=== PATIENT | female | born 1945 | race Caucasian/White ===

== ENCOUNTER → 2022-06-14 15:31 | Outpatient (CLI) | payer MEDICARE, SELFPAY ==
--- NOTE | 2022-06-14 15:33 | DI.MRI.S_ITS ---
PROCEDURE: MR LUMBAR SPINE WO CON INDICATIONS: Radiculopathy, lumbar region TECHNIQUE: Noncontrast sagittal T1 spin echo and T2 fast echo, sagittal STIR, and T2 fast spin echo through the lumbar spine. In cases with scoliosis, additional coronal T2 fast spin echo may be performed. COMPARISON: None. FINDINGS: Mild lumbar levoscoliosis centered at L2-L3. Approximately 5 mm anterolisthesis of L5 on S1. Otherwise normal alignment. Vertebral body heights maintained. No suspicious focal marrow signal abnormality or bone marrow edema. Normal position and appearance of the conus. Regional soft tissues normal. T12-L1: No spinal canal or neural foraminal stenosis. L1-L2: Posterior disc-osteophyte complex flattens and indents the ventral thecal sac. Mild displacement of the descending right L2 nerve roots in the right subarticular zone. Foraminal components of the disc bulge and facet hypertrophy combine to produce moderate right and mild left neural foraminal narrowing. L2-L3: Disc bulge flattens the ventral thecal sac without mass effect upon the traversing L3 nerve roots. Foraminal components of the disc bulge and facet hypertrophy combine to produce mild bilateral neural foraminal narrowing. L3-L4: Disc bulge flattens the ventral thecal sac. No mass effect upon the traversing L4 nerve roots. Foraminal components of the disc bulge and facet hypertrophy combine to produce moderate bilateral neural foraminal narrowing. L4-L5: Disc bulge flattens the ventral thecal sac with mild displacement of the descending L5 nerve roots in both subarticular zones. Severe left and moderate right neural foraminal narrowing due to foraminal components of the disc bulge and facet hypertrophy. L5-S1: Diffuse disc bulge and a superimposed broad-based posterior disc protrusion flatten the ventral thecal sac and displaces the bilateral descending S1 nerve roots in both subarticular zones. Foraminal components of the disc bulge and facet hypertrophy combine to produce severe left and moderate right neural foraminal narrowing. IMPRESSION: Multilevel multifactorial degenerative changes, worst at L4-L5 and L5-S1 where there is severe neural foraminal narrowing. Dictated by: Nico Torrez M.D. on 06/15/2022 at 8:27 Approved by: Nico Torrez M.D. on 06/15/2022 at 8:31
== END ==
PROVIDERS: Referring Provider Family Medicine; Visit Provider Family Medicine
DX: M47.26 Other spondylosis with radiculopathy, lumbar region (principal); M47.27 Other spondylosis with radiculopathy, lumbosacral region; M48.061 Spinal stenosis, lumbar region without neurogenic claudication; M48.07 Spinal stenosis, lumbosacral region
CPT/HCPCS: 72148

== ENCOUNTER → 2023-12-26 07:16 | Outpatient (CLI) | payer MEDICARE, SELFPAY ==
--- NOTE | 2023-12-26 07:19 | DI.MRI.S_ITS ---
PROCEDURE: MR HEAD/BRAIN WO/W CON INDICATIONS: APHASIA TECHNIQUE: Noncontrast axial T1 spin echo, axial T2 fast spin echo, sagittal and axial FLAIR, coronal T2 fast spin echo, axial gradient echo, axial diffusion and ADC through the brain. After the administration of contrast, axial and coronal and sagittal T1 spin echo with fat saturation through the brain. COMPARISON: [facility], , CAROTID DOPPLER BI, 12/26/2023, 11:02. FINDINGS: Image quality: This examination is limited by involuntary motion artifact. CSF spaces: Basal cisterns are patent. No extra-axial fluid collections. Ventricles are normal in size and shape. Brain: No midline shift. No intracranial bleeds or masses. No abnormal intracranial enhancement. There is cerebral volume loss for age. There is periventricular white matter chronic small vessel ischemic change. The brainstem appears normal. Diffusion-weighted images demonstrate no acute infarct. No chronic ischemic insults. Normal intravascular flow voids are present. Skull and face: Calvarial marrow is normal in signal. Orbits appear normal. Note is made of bilateral lens replacements. Sinuses: Sinuses and mastoids appear clear. IMPRESSION: No findings of acute or subacute infarction can be seen. No prior territorial infarct can be seen. No masses or abnormal enhancement can be seen. Dictated by: Miguel aDvis M.D. on 12/26/2023 at 16:35 Approved by: Miguel Davis M.D. on 12/26/2023 at 16:36
--- NOTE | 2023-12-26 07:19 | DI.US.S_ITS ---
PROCEDURE: US CAROTID DOPPLER BI INDICATIONS: APHASIA TECHNIQUE: Color and pulse Doppler interrogation was performed of both carotid systems, with image documentation and velocity measurements. COMPARISON: None. FINDINGS: Stenosis calculations are based on SRU (Society of Radiologists in Ultrasound) criteria. Right side: Brachial blood pressure: 125/55 mm Hg. Common carotid artery peak systolic velocity: 61 cm/sec. Internal carotid artery peak systolic velocity: 87 cm/sec. Internal carotid artery end diastolic velocity: 31 cm/sec. External carotid artery peak systolic velocity: 33 cm/sec. ICA/CCA peak systolic ratio: 1.4 . Soriano scale imaging description: Mild atherosclerotic plaques Percent internal carotid artery stenosis: Less than 50 percent stenosis . Vertebral artery: Flow direction is antegrade. Left side: Brachial blood pressure: 126/63 mm Hg. Common carotid artery peak systolic velocity: 52 cm/sec. Internal carotid artery peak systolic velocity: 147 cm/sec. Internal carotid artery end diastolic velocity: 42 cm/sec. External carotid artery peak systolic velocity: 63 cm/sec. ICA/CCA peak systolic ratio: 2.8 . Soriano scale imaging description: Mild atherosclerotic plaques Percent internal carotid artery stenosis: 50-69 percent stenosis . Vertebral artery: Flow direction is antegrade. IMPRESSION: Less than 50 percent stenosis of the right ICA and 50-69 percent stenosis of the left ICA. Dictated by: Scotty Abrams M.D. on 12/26/2023 at 11:52 Approved by: Scotty Abrams M.D. on 12/26/2023 at 11:55
== END ==
PROVIDERS: PCP Family Medicine; Referring Provider Internal Medicine Cardiovascular Disease; Visit Provider Internal Medicine Cardiovascular Disease
DX: R47.01 Aphasia (principal); I65.23 Occlusion and stenosis of bilateral carotid arteries
CPT/HCPCS: 70553; 93880; A9579

== ENCOUNTER → 2024-01-25 09:10 | Outpatient (CLI) | payer MEDICARE, SELFPAY ==
--- NOTE | 2024-01-25 09:12 | DI.ECHO.S_ITS ---
[facility] : : [address] : : [place] : : [id number] : : Phone: [phone] Echocardiogram Report + + :Name: JOHANNA NGUYEN Study Date: 01/25/2024 Height: 61 in : :Hospital ReadingLocation: Weight: 150 lb : : Gender: Female BSA: 1.7 m2 : :: 1945 Age: 78 yrs BP: 135/71 mmHg: :Reason For Study: BRADYCARDIA : :Ordering Physician: JAVIER, : :ALEXIA Corrigan Performed By: Nico Hollingsworth : :Referring: ALEXIA CHAPARRO : + + Interpretation Summary The ejection fraction is estimated to be 55-60%. Diastolic function could not be accurately assessed due to contradictory data. The left atrium is mildly dilated. The right ventricle is borderline dilated. The right ventricular systolic function is normal. The right atrium is mildly dilated. There is mild tricuspid regurgitation. The right ventricular systolic pressure is estimated to be at least 26 mmHg based on an estimated right atrial pressure of 3 mm Hg. Procedure: A two-dimensional transthoracic echocardiogram with color flow and Doppler was performed. The study quality was technically adequate. There is no prior echocardiogram noted for this patient. The patient was in sinus rhythm with heart rates between 50-66 bpm during the exam. Left Ventricle: The left ventricle is normal in size and wall thickness. The ejection fraction is estimated to be 55-60%. Diastolic function could not be accurately assessed due to contradictory data. Right Ventricle: The right ventricle is borderline dilated. The right ventricular systolic function is normal. Atria: The left atrium is mildly dilated. The right atrium is mildly dilated. The interatrial septum grossly appears intact with no obvious evidence for an atrial septal defect. Mitral Valve: The mitral valve is normal. There is no mitral valve stenosis. There is trace mitral regurgitation. Aortic Valve: The aortic valve is trileaflet. There is no aortic valve stenosis. No aortic regurgitation is present. Tricuspid Valve: The tricuspid valve is normal. There is no tricuspid stenosis. There is mild tricuspid regurgitation. The right ventricular systolic pressure is estimated to be at least 26 mmHg based on an estimated right atrial pressure of 3 mm Hg. Pulmonic Valve: The pulmonic valve is not well visualized. There is no pulmonic valvular stenosis. There is trace pulmonic regurgitation. Great Vessels: The aortic root is normal size. The ascending aorta is at the upper limits of normal in size. The IVC is of normal diameter and collapses greater than 50% with a sniff. This suggests a low right atrial pressure of 3 mm Hg. Pericardium/ Pleura There is no pericardial effusion. There is no pleural effusion. MMode/2D Measurements & Calculations LVIDd: 5.3 cm LVOT diam: 2.0 cm LVIDs: 3.3 cm Ao root diam: 3.3 cm FS: 37.4 % asc Aorta Diam: 3.7 cm IVSd: 1.0 cm LVPWd: 0.88 cm LV flores. diameter/BSA (cm/m^2): 3.1 LV sys. diameter/BSA (cm/m^2): 2.0 LA A2 area: 19.8 cm2 RA long axis: 5.5 cm LA A4 area: 21.1 cm2 RA area: 20.2 cm2 LA length (vol): 5.2 cm RA vol: 62.9 ml LA vol: 68.1 ml RA : 37.7 ml/m2 LA vol index: 40.7 ml/m2 IVC diam: 1.5 cm RVD2 (mid): 3.8 cm TAPSE: 2.5 cm Doppler Measurements & Calculations Ao V2 max: 159.9 cm/sec LVOT Max Kevin: 112.7 cm/sec Ao V2 mean: 112.0 cm/sec LV V1 max P.1 mmHg Ao max P.2 mmHg LV V1 VTI: 26.4 cm Ao mean P.5 mmHg KATHY(I,D): 2.3 cm2 Ao V2 VTI: 35.4 cm KATHY(V,D): 2.2 cm2 sev ratio: 0.75 KATHY indexed to BSA (cm^2/m^2): 1.4 MV E max kevin: 55.6 cm/sec TR max kevin: 238.4 cm/sec MV A max kevin: 66.4 cm/sec TR max P.7 mmHg MV E/A: 0.84 PA V2 max: 80.6 cm/sec Med Peak E' Kevin: 4.9 cm/sec PA V2 mean: 53.9 cm/sec E/E' med: 11.3 PA mean P.3 mmHg Lat Peak E' Kevin: 8.6 cm/sec PA pr(Accel): 41.3 mmHg E/E' lat: 6.4 E/e' average: 8.9 MV dec time: 0.22 sec SVLVOT): 82.4 ml Reading Physician:02:24 PM
== END ==
PROVIDERS: PCP Family Medicine; Referring Provider Internal Medicine Cardiovascular Disease; Visit Provider Internal Medicine Cardiovascular Disease
DX: I07.1 Rheumatic tricuspid insufficiency (principal); R00.1 Bradycardia, unspecified
CPT/HCPCS: 93306

== ENCOUNTER → 2024-03-05 08:05 | Outpatient (CLI) | payer MEDICARE, SELFPAY ==
[2024-03-05 08:57] LABS: Add Manual Diff / Slide Review NO; Basophils Absolute Auto 0 /uL (0-100); Basophils Percent Auto 0.6 % (0-2); Eosinophils Absolute Auto 200 /uL (0-450); Eosinophils Percent Auto 3.2 % (2-4); Hematocrit 39.5 % (36-46); Hemoglobin 13.3 g/dL (12.0-16.0); Lymphocytes Absolute Auto 1400 /uL (1100-4500); Mean Corpuscular HGB Conc 33.6 % (30-36); Mean Corpuscular Hemoglobin 31.7 PG (26-34); Mean Corpuscular Volume 94.4 fL (80-100); Monocytes Absolute Auto 1000 /uL (0-900); Monocytes Percent Auto 16.5 % (3-14); Neutrophils Absolute Auto 3300 /uL (1500-7000); Neutrophils Percent Auto 55.7 % (50-75); Platelet Count 304 X10^3/uL (150-400); Red Blood Cell Count 4.18 X10^6/uL (4.0-5.2); Red Cell Distribution Width 13.9 % (11.6-14.8)
[2024-03-05 09:07] LABS: Hemoglobin A1C% w Est Avg Glu 5.1 % (4.0-6.0)
[2024-03-05 09:09] LABS: Alanine Aminotransferase 20 IU/L (<35); Albumin 3.8 g/dL (3.5-5.0); Albumin Globulin Ratio 1.4 (1.0-2.8); Alkaline Phosphatase 64 U/L (38-126); Aspartate Aminotransferase 24 IU/L (14-36); BUN Creatinine Ratio 26.7 (6-22); Bilirubin Total 0.5 mg/dL (0.2-1.3); Blood Urea Nitrogen 16 mg/dL (7-17); Calcium 9.2 mg/dL (8.4-10.2); Carbon Dioxide 30 mmol/L (22-32); Chloride 104 mmol/L (98-107); Cholesterol 238 mg/dL (140-199); Estimated Glomerular Filt Rate > 60 mL/min (>60); Globulin 2.7 g/dL (1.7-4.1); Glucose 83 mg/dL (80-110); HDL Cholesterol 93 mg/dL (40-60); HEMOLYSIS < 15 (0-50); LDL Cholesterol Calculated 126 mg/dL (<100); Magnesium 1.8 mg/dL (1.6-2.3); Potassium 4.6 mmol/L (3.4-5.1); Sodium 138 mmol/L (137-145); Total Protein 6.5 g/dL (6.3-8.2); Triglycerides 93 mg/dL (35-150)
[2024-03-05 12:44] LABS: TSH w/ Reflex to FT4 2.71 uIU/mL (0.47-4.68)
[2024-03-05 13:20] LABS: Folate > 20.0 ng/mL (2.76-20.0); Vitamin B12 911 pg/mL (239-931)
== END ==
PROVIDERS: PCP Family Medicine; Referring Provider Internal Medicine Cardiovascular Disease; Visit Provider Internal Medicine Cardiovascular Disease
DX: R00.1 Bradycardia, unspecified (principal); Z13.1 Encounter for screening for diabetes mellitus; Z13.220 Encounter for screening for lipoid disorders; R47.01 Aphasia
CPT/HCPCS: 36415; 80053; 80061; 82607; 82746; 83036; 83735; 84443; 85025

== ENCOUNTER 2024-06-02 15:49 | Emergency (ER) | payer OTHER, SELFPAY ==
[2024-06-02] VITALS (9 sets, daily range): BP systolic 149–171; BP diastolic 67–75; PULSE 54–60; RESP 11–43; TEMP 36.9; O2SAT 96–99; BMI 29.8
--- NOTE | 2024-06-02 15:54 | DI.RAD.S_ITS ---
PROCEDURE: XR CHEST 1V INDICATIONS: chest pain TECHNIQUE: One view of the chest was acquired. COMPARISON: None. FINDINGS: Surgical changes and devices: None. Lungs and pleura: Lungs are clear. No pleural effusions or pneumothorax. There is elevation of the right hemidiaphragm. Mediastinum: The cardiac contours are within normal limits. The aorta demonstrates calcification and tortuosity. Bones and chest wall: No suspicious bony lesions. Age-appropriate bony degenerative changes are seen. Overlying soft tissues appear unremarkable. IMPRESSION: Portable chest within normal limits for age. Dictated by: Miguel Davis M.D. on 06/02/2024 at 15:54 Approved by: Miguel Davis M.D. on 06/02/2024 at 15:55
--- NOTE | 2024-06-02 16:04 | EKG_ITS ---
[place] [id number] [place] [id number] Test Date: 2024-06-02 Pat Name: Dee Daugherty Department: [facility] Room: Gender: Female [employer]: TITA ORR : 1945 Requested By: Order Number: [id number] Reading MD: Chandu Glover MD Measurements Intervals [place] Rate: 57 P: 67 OK: 186 QRS: 11 QRSD: 92 T: 52 QT: 398 QTc: 387 Interpretive Statements Sinus bradycardia Electronically Signed On 06-03-2024 7:34:03 PST by Chandu Glover MD
[2024-06-02 16:31] LABS: Add Manual Diff / Slide Review NO; Basophils Absolute Auto 100 /uL (0-100); Basophils Percent Auto 0.8 % (0-2); Eosinophils Absolute Auto 0 /uL (0-450); Eosinophils Percent Auto 0.2 % (2-4); Hematocrit 40.3 % (36-46); Hemoglobin 13.6 g/dL (12.0-16.0); Lymphocytes Absolute Auto 900 /uL (1100-4500); Lymphocytes Percent Auto 10.4 % (25-40); Mean Corpuscular HGB Conc 33.8 % (30-36); Mean Corpuscular Hemoglobin 31.7 PG (26-34); Mean Corpuscular Volume 93.7 fL (80-100); Monocytes Absolute Auto 600 /uL (0-900); Monocytes Percent Auto 7.5 % (3-14); Neutrophils Absolute Auto 6700 /uL (1500-7000); Neutrophils Percent Auto 81.1 % (50-75); Platelet Count 332 X10^3/uL (150-400); Red Cell Distribution Width 13.3 % (11.6-14.8); White Blood Cell Count 8.2 X10^3/uL (4.5-11.0)
[2024-06-02 16:40] LABS: INR 0.9 (0.9-1.3); Prothrombin Time 10.7 SECONDS (9.4-12.5)
[2024-06-02 16:42] LABS: Alanine Aminotransferase 27 IU/L (<35); Albumin 4.6 g/dL (3.5-5.0); Albumin Globulin Ratio 1.7 (1.0-2.8); Alkaline Phosphatase 67 U/L (38-126); Aspartate Aminotransferase 32 IU/L (14-36); BUN Creatinine Ratio 27.3 (6-22); Bilirubin Total 0.3 mg/dL (0.2-1.3); Blood Urea Nitrogen 18 mg/dL (7-17); Calcium 9.2 mg/dL (8.4-10.2); Carbon Dioxide 28 mmol/L (22-32); Chloride 102 mmol/L (98-107); Creatine Kinase 208 U/L (30-135); Estimated Glomerular Filt Rate > 60 mL/min (>60); Globulin 2.7 g/dL (1.7-4.1); Glucose 114 mg/dL (80-110); HEMOLYSIS < 15 (0-50); Lipase 178 U/L (23-300); Magnesium 1.9 mg/dL (1.6-2.3); Sodium 135 mmol/L (137-145); Total Protein 7.3 g/dL (6.3-8.2)
[2024-06-02 16:43] LABS: PTT Partial Thromboplastin Tim 32 SECONDS (25.1-36.5)
[2024-06-02 16:54] LABS: NT-proBNP (BNP-Adult 18+) 254 pg/mL (<450); Troponin I < 0.012 ng/mL (0.01-0.034)
--- NOTE | 2024-06-02 17:44 | PC.NURSE ---
confusion intermittently at time of episodes patient states she has had episodes since december, wore a halter monitor with no arrhythmias. Alert and oriented. Denies chest pain or SOB at this time
--- NOTE | 2024-06-02 18:12 | ED.ARRPALP ---
HPI - Arrhythmia/Palpitations General Chief Complaint: Arrhythmia/Palpitations Stated Complaint: episodes of rapid heart rate Time Seen by Provider: 06/02/24 16:16 Source: patient and family Mode of arrival: Family Vehicle History of Present Illness HPI narrative: Patient was a 79-year-old female who is here for evaluation of episodes that have occurred multiple times today where she states she has some brain fog and her heart rate is elevated. No chest pain. She currently is asymptomatic. No shortness of breath. She would very similar symptoms at the end of last year. She was seen her primary doctor. Has seen Cardiology. Has had a Holter monitor. Has also seen a neurologist in his had an EEG because she was a prior history of epilepsy. No specific diagnosis has been found. She states that she comes to emergency department today because she was had multiple episodes today which is a little unusual. They last anywhere from seconds to minutes. Does not seem to be associated with any sort of movement or activity. Related Data Home Medications Medication Instructions Recorded Confirmed LEVOTHYROXINE SODIUM 100 mcg PO QDAY ##0 05/08/12 conjugated estrogens 0.9 mg tablet 0.9 mg PO QDAY ##0 05/08/12 (Premarin) Review of Systems Review of Systems ROS Unobtainable: All systems reviewed & are unremarkable except as noted in HPI and below Exam Initial Vital Signs Initial Vital Signs: Vital Signs Temperature 98.4 F 06/02/24 15:55 Pulse Rate 57 L 06/02/24 15:55 Respiratory Rate 16 06/02/24 15:55 Blood Pressure 158/70 H 06/02/24 15:55 Pulse Oximetry 99 06/02/24 15:55 Oxygen Delivery Method Room Air 06/02/24 15:55 Const General: cooperative, comfortable and No ill appearing [facility] Head: normal to inspection and normocephalic Resp Effort & Inspection: normal respiratory effort Auscultation: clear to auscultation bilaterally Cardio Rate: regular rate Rhythm: regular rhythm GI Inspection: normal to inspection and non-distended Skin General: no rashes or lesions noted Neuro General: patient alert, patient awake, patient oriented x3 and moves all extremities Extrem General: normal to inspection and capillary refill normal Course Orders Ordered: ED Orders 06/02/24 15:54 XR chest 1V Stat EKG-12 Lead Stat 06/02/24 16:15 Complete Blood Count AUTO DIFF Stat Comprehensive Metabolic Panel Stat Lipase Stat Magnesium Stat NT-proBNP (BNP-Adult 18+) Stat PTT Partial Thromboplastin Mike Stat Prothrombin Time INR Stat Troponin & CK Cardiac Panel Stat Discontinued Medications Aspirin (Aspirin 81 Mg Chew Tab) 324 mg PO NOW ONE Stop: 06/02/24 15:55 Last Admin: 06/02/24 17:51 Dose: Not Given Documented By: [facility] Vital Signs Vital signs: Vital Signs - 8 hr 06/02/24 17:00 06/02/24 17:01 06/02/24 17:01 Pulse Rate 54 L 54 L Respiratory Rate 14 22 Blood Pressure 161/71 H Pulse Oximetry 97 98 06/02/24 17:30 06/02/24 17:30 06/02/24 18:00 Pulse Rate 56 L Respiratory Rate 11 L Blood Pressure 160/67 H 149/69 H Pulse Oximetry 98 06/02/24 18:00 Pulse Rate 56 L Respiratory Rate 27 H Blood Pressure Pulse Oximetry 98 MDM - Arrhythmia/Palpitations Medical Records Attestation: I reviewed the patient's medical records. Lab Data Attestation: I reviewed the patient's lab results. 06/02/24 16:15 06/02/24 16:15 Labs: Lab Results 06/02/24 Range/Units 16:15 WBC 8.2 (4.5-11.0) X10^3/uL RBC 4.30 (4.0-5.2) X10^6/uL Hgb 13.6 (12.0-16.0) g/dL Hct 40.3 (36-46) % MCV 93.7 (80-100) fL MCH 31.7 (26-34) PG MCHC 33.8 (30-36) % RDW 13.3 (11.6-14.8) % Plt Count 332 (150-400) X10^3/uL Neut % (Auto) 81.1 H (50-75) % Lymph % (Auto) 10.4 L (25-40) % Valencia % (Auto) 7.5 (3-14) % Eos % (Auto) 0.2 L (2-4) % Baso % (Auto) 0.8 (0-2) % Neut # (Auto) 6700 (6536-2716) /uL Lymph # (Auto) 900 L (6520-2988) /uL Valencia # (Auto) 600 (0-900) /uL Eos # (Auto) 0 (0-450) /uL Baso # (Auto) 100 (0-100) /uL PT 10.7 (9.4-12.5) SECONDS INR 0.9 (0.9-1.3) APTT 32 (25.1-36.5) SECONDS Sodium 135 L (137-145) mmol/L Potassium 4.0 (3.4-5.1) mmol/L Chloride 102 (98-107) mmol/L Carbon Dioxide 28 (22-32) mmol/L BUN 18 H (7-17) mg/dL Creatinine 0.66 (0.52-1.04) mg/dL Estimated GFR > 60 (>60) mL/min BUN/Creatinine Ratio 27.3 H (6-22) Glucose 114 H (80-110) mg/dL Calcium 9.2 (8.4-10.2) mg/dL Magnesium 1.9 (1.6-2.3) mg/dL Total Bilirubin 0.3 (0.2-1.3) mg/dL AST 32 (14-36) IU/L ALT 27 (<35) IU/L Alkaline Phosphatase 67 (38-126) U/L Total Creatine Kinase 208 H (30-135) U/L Troponin I < 0.012 (0.01-0.034) ng/mL NT-Pro-B Natriuret Pep 254 (<450) pg/mL Total Protein 7.3 (6.3-8.2) g/dL Albumin 4.6 (3.5-5.0) g/dL Globulin 2.7 (1.7-4.1) g/dL Albumin/Globulin Ratio 1.7 (1.0-2.8) Lipase 178 (23-300) U/L Imaging Data Chest x-ray: Radiologist's Impresson: PROCEDURE: XR CHEST 1V INDICATIONS: chest pain TECHNIQUE: One view of the chest was acquired. COMPARISON: None. FINDINGS: Surgical changes and devices: None. Lungs and pleura: Lungs are clear. No pleural effusions or pneumothorax. There is elevation of the right hemidiaphragm. Mediastinum: The cardiac contours are within normal limits. The aorta demonstrates calcification and tortuosity. Bones and chest wall: No suspicious bony lesions. Age-appropriate bony degenerative changes are seen. Overlying soft tissues appear unremarkable. IMPRESSION: Portable chest within normal limits for age. ECG Data Attestation: I personally reviewed and interpreted this ECG as follows: Interpretation: Sinus bradycardia Ventricular rate of 57 Normal axis Normal QRS Normal QTC No ST T wave changes MDM Narrative Medical decision making narrative: Patient was now asymptomatic. EKG is unremarkable. Electrolytes unremarkable. Workup here in the emergency department is unremarkable. She understands the limitations of our workup here in the ER. 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 I have low suspicion that this is seizure activity. We discussed return precautions and follow-up instructions. She expressed understanding and agreement Discharge Plan Departure Patient Disposition: Home Clinical Impression: Palpitations, Episodic lightheadedness Activity Restrictions/Additional Instructions: Continue to take all of your medications as directed. I recommend that you contact your primary care doctor for a follow-up to discuss the indications for further testing potentially with another Holter monitor. Return to the emergency department for new or worsening symptoms like we discussed. Prescriptions: No Action conjugated estrogens [Premarin] 0.9 MG tablet 0.9 mg PO QDAY Qty: 0 LEVOTHYROXINE SODIUM 100 mcg PO QDAY Qty: 0 Referrals: Tristan Vegas MD [Primary Care Provider] - Stand Alone Forms: Patient Portal/API/Survey
== END 2024-06-02 18:18 | disposition home or self-care (01) ==
PROVIDERS: Emergency Medicine; Emergency Provider Emergency Medicine; PCP Family Medicine
DX: R00.2 Palpitations (principal); R42 Dizziness and giddiness; R07.9 Chest pain, unspecified; R00.1 Bradycardia, unspecified
CPT/HCPCS: 36415; 71045; 80053; 82550; 83690; 83735; 83880; 84484; 85025; 85610; 85730; 93005; 99284